=== PATIENT | female | born 1955 | race Hispanic/Latino ===

== ENCOUNTER 2024-07-23 06:18 | Emergency (ER) | payer MEDICARE ==
[2024-07-23] MEDS ORDERED: predniSONE 20 MG TAB ONE (07:19)
[2024-07-23] MEDS ORDERED: Ipratropium/Albuterol 3 ML NEB ONE (07:34)
[2024-07-23] MEDS ORDERED: Albuterol 2.5 MG (3 mL) NEB ONE (07:34)
[2024-07-23 08:03] LABS: #Basophils Less than 0.03 10x3/uL (0.0-0.2); #Eosinophils Less than 0.03 10x3/uL (0.0-0.7); %Basophils 0.1 % (0.0-1.0); %Lymphocytes 12.7 % (21.0-51.0); %Monocytes 7.6 % (0.0-10.0); %Neutrophils 78.6 % (42.0-75.0); Hemoglobin 10.1 g/dL (12.0-16.0); Mean Corpuscular HGB CONC 31.6 g/dL (32.0-36.0); Mean Corpuscular Hemoglobin 30.7 pg (27.0-31.0); Mean Corpuscular Volume 97.3 fL (78.0-98.0); Mean Platelet Volume 9.6 fL (7.4-10.4); Platelet Count 224 10x3/uL (130-400); RBC Distribution Width 14.9 % (11.5-14.5); Red Blood Cell (RBC) Count 3.29 mill/uL (4.20-5.40)
[2024-07-23 08:19] LABS: ALT (SGPT) 7 U/L (Less than 34); AST (SGOT) 29 U/L (11-34); Albumin 3.3 g/dL (3.1-4.5); Alkaline Phosphatase 76 U/L (40-110); Anion Gap 17 mmol/L (10-20); BUN (Urea Nitrogen) 44 mg/dL (9.8-20.1); Bilirubin, Total 0.5 mg/dL (0.3-1.2); Calc. Creatinine Clearance 0 mL/min (70-130); Calcium 9.2 mg/dL (7.8-10.44); Carbon Dioxide 31 mmol/L (23-31); Chloride 93 mmol/L (98-107); Estimated GFR 6; Glucose 101 mg/dL (80-115); Potassium 3.3 mmol/L (3.5-5.1); Protein, Total 7.3 g/dL (5.8-8.1); Sodium 138 mmol/L (136-145)
[2024-07-23 08:31] LABS: Critical Call Chem Troponin I NUR.SW3
[2024-07-23 10:11] LABS: Critical Call Chem Troponin I RESULT DECREASING; Troponin I 0.757 ng/mL (< 0.028)
== END 2024-07-23 10:23 | disposition home or self-care (01) ==
LOC: ERS 06:18
DX: R05.1 Acute cough (principal); R06.2 Wheezing; R79.89 Other specified abnormal findings of blood chemistry; I12.0 Hypertensive chronic kidney disease with stage 5 chronic kidney disease or end stage renal disease; N18.6 End stage renal disease
CPT/HCPCS: 36415; 71045; 80053; 83880; 84484; 85025; 87081; 87430; 93005; J7512; J7611; J7620

== ENCOUNTER 2025-01-26 14:59 | Outpatient (CLI) | payer MEDICARE | END 2025-01-26 15:00 | disposition home or self-care (01) | LOC: SCSRAD 14:59 | PROVIDERS: ATTEND Family Medicine | DX: R05.9 Cough, unspecified (principal); I51.9 Heart disease, unspecified; J81.0 Acute pulmonary edema | CPT/HCPCS: 71046 ==